=== PATIENT | female | born 1950 | race Caucasian/White ===

== ENCOUNTER 2016-07-07 12:55 | Inpatient (IN) | payer OTHER ==
--- NOTE | ~2016-07-07 | DS ---
Discharge Summary [facility] [address] [place]. [address] NAME: PIOTR LUCIANO : 54 STATUS : DIS IN PAT#: [id number] AGE: 66 ADM/REG DATE : 07/07/16 MR#: [id number] REPORT SERV DATE: 07/13/16 DICTATED BY: GENEVIEVE WHITE DATE: 07/12/16 REPORT STATUS : Draft TRANSCRIBED BY: MODL DATE: 07/12/16 ADMISSION DATE: 07/07/2016 DISCHARGE DATE: 07/12/2016 DISCHARGE DIAGNOSES: 1. Acute on chronic hypoxemic and hypercapnic respiratory failure. 2. Severe chronic obstructive pulmonary disease. 3. Right lower lobe pneumonia. 4. Previous stroke. 5. Chronic pain syndrome. 6. Anxiety and depression with bipolar disorder. 7. History of stress cardiomyopathy, 2016. 8. Low TSH with normal T4. OPERATION/PROCEDURES: Mechanical ventilation. PRESENT ILLNESS: This is a 66-year-old white female who was admitted to the Critical Care Medicine Team, taken in transfer from [facility] Emergency Room with respiratory failure. Intubated on mechanical ventilation as described on admission history and physical examination, dictated by Dr. Kye Carrion. ADDITIONAL HISTORY: Per Dr. Carrion. PHYSICAL EXAMINATION: Per Dr. Carrion. ADMISSION LABORATORY: Per Dr. Carrion. HOSPITAL COURSE: She was managed in the critical care unit by the Critical Care Medicine. Details per interim summary yet to be dictated. Of note, she was given bronchodilators, Levaquin, and steroids. She was able to be extubated on 07/09/2016. She was transferred to the floor on 07/11/2016 where she was seen by Dr. Alfaro. She was seen by id on 07/12/2016. Her son was present. The patient and her son thought that she was back to her baseline status. She thought that her cough and dyspnea were baseline. Her O2 sats on 2 L 96 to 97, resting and walking. She was eating without nausea, vomiting, or diarrhea. A procalcitonin was less than 0.05. BMP; sodium 137, potassium 3.5, chloride 96, CO2 of 39, BUN 8, creatinine 0.25, glucose 92, calcium 8.5. CBC; white count 11.9, hemoglobin 11.4, platelets 301,000. Culture data from admission. Trachea, normal natalya. Blood cultures, no growth. Discharge Summary [facility] [address] [place]. [address] NAME: PIOTR LUCIANO : 54 STATUS : DIS IN PAT#: [id number] AGE: 66 ADM/REG DATE : 07/07/16 MR#: [id number] REPORT SERV DATE: 07/13/16 DICTATED BY: GENEVIEVE WHITE DATE: 07/12/16 REPORT STATUS : Draft TRANSCRIBED BY: DANITA DATE: 07/12/16 A chest x-ray that had been done on 07/07/2016 showed right basilar patchy consolidation with small pleural effusion and lateral right mid lung consolidation concerning for multifocal pneumonia. Her ET tube was appropriately placed. A followup x-ray had been done on 07/10/2016 post extubation. There was infiltrate at the right base. At this point in her hospitalization, it was felt she had achieved a level of improvement and stability where she could be safely discharged home. She had been living by herself. Her son indicated she would be living with him. She was seen by Physical Therapy, who thought she could be discharged home with home health care. Accordingly, she is being discharged with [facility] for home evaluation, PT evaluation, and treatment and medication reconciliation. She will continue her home diet. She will continue her home O2 at 2 L/minute. She is to have outpatient followup with Alvaro Sams in one week and Dr. Kirby in two weeks. DISCHARGE MEDICATIONS: Pending outpatient followup. Abilify 15 mg daily, aspirin 81 mg daily, Lipitor 40 mg daily, Coreg 6.25 mg twice daily, Lexapro 10 mg daily, Levaquin 750 mg for four further days, prednisone 40 mg daily for four further days, Claritin 10 mg daily, multivitamin daily, Risperdal 1 mg at bedtime, Spiriva one cap inhaled daily, albuterol nebs every six hours as needed, Symbicort two puffs twice daily, Ultram 100 mg every six hours as needed. Discharge time greater than 30 minutes. DD/DANITA Genevieve White M.D. / [id number] CC: Nate Bailey PAUL E Pamela Sud, M.D.
--- NOTE | ~2016-07-07 | HP ---
History And Physical [facility] [address] [place]. [address] NAME: PIOTR RIGGS : 54 STATUS : ADM IN [facility]#: [id number] AGE: 66 ADM/REG DATE : 07/07/16 MR#: [id number] REPORT SERV DATE: 07/07/16 DICTATED BY: RENITA CARRION DATE: 07/07/16 REPORT STATUS : Draft TRANSCRIBED BY: MODL DATE: 07/07/16 DATE OF ADMISSION: 07/07/2016 REASON FOR ADMISSION: Acute hypercapnic respiratory failure. HISTORY OF PRESENT ILLNESS: Ms. Riggs is a 66-year-old woman with very severe COPD, bullous emphysema, and a 3-pack a day smoking habit, had recently been hospitalized because of complications of her respiratory status. She presented to an outside hospital, where she was found to be very hypercapnic and hypoxemic. She was intubated, placed on mechanical ventilation, transferred for further management. PAST MEDICAL HISTORY: Significant for severe COPD with bullous emphysema. She has anxiety and psychiatric disease and had been admitted with hyponatremia, some of which was associated with her psychotropic medications on last summer. She has had worsening cough, worsening dyspnea, but no recent chest pain. She has an FEV1 previously documented at about 40% of predicted, coronary artery disease, hypertension, chronic migraines, depression, anxiety, and tobacco abuse. SOCIAL HISTORY: She previously had a 3-pack a day habit. Continues to smoke. No alcohol abuse or illicit drug use. FAMILY HISTORY: Noncontributory to this acute presentation, though it is positive for smoking-related lung disease. REVIEW OF SYSTEMS: Review of 10 systems could not be obtained from the patient because she is intubated, though was confirmed with the family who is at the bedside. PHYSICAL EXAMINATION: GENERAL: On exam, she appears chronically ill. HEENT: Normocephalic, atraumatic. NECK: Supple. No lymphadenopathy. No JVD. CHEST: Symmetric with good expansion bilaterally. She has a prolonged expiratory phase. Diminished breath sounds throughout. She is on the ventilator. CARDIOVASCULAR: She has S1 and S2, which are regular rate and rhythm. ABDOMEN: Benign. She has no edema. No clubbing. No cyanosis. ASSESSMENT AND PLAN: [id number]-pt-[id number] hypercapnic hypoxemic respiratory failure: She has significant hypercapnia on presentation to the outside hospital, slightly improved on the ventilator. Her chest radiograph shows some increased congestion at the bases, though it is unclear to me how much of that because of the hyperlucency of the upper lung hernandez given her known severe emphysema. We will treat her with aggressive antibiotic therapy just the same both for acute exacerbation of chronic obstructive pulmonary disease as well as for possible early pneumonia. She will have a followup procalcitonin level in the morning for monitoring. In the meantime, she has been started on systemic steroids, aggressive bronchodilator therapy, DVT, and GI prophylaxis, and will remain on the ventilator. Family History And Physical [address] [place]. [address] NAME: PIOTR RIGGS : 54 STATUS : ADM IN [facility]#: [id number] AGE: 66 ADM/REG DATE : 07/07/16 MR#: [id number] REPORT SERV DATE: 07/07/16 DICTATED BY: RENITA CARRION DATE: 07/07/16 REPORT STATUS : Draft TRANSCRIBED BY: DANITA DATE: 07/07/16 was updated. HOLLIE/DANITA Renita Carrion M.D. / [id number] CC: Ashlie Cazares M.D.
[~2016-07-07 12:55] MED LIST: ABILIFY15 PO; ABILIFY2 PO; ADVIL PO; ANTIBIOTIC; ASAB PO; ATROVENTUD INH; BUSPAR15 M1 PO; CLARIT10 PO; COGEN1 PO; COMBIVENT INH; COMBIVENT RESPIM4 GM INH; COREG6 PO; DUONEB INH; FLORASTOR250 MG PO; HALF81 PO; L25 PO; LEXAPRO20 PO; LIPITOR40 PO; MAX25 PO; MEDROLPAK4 PO; MULTIVIT/MIN PO; NICODERM C14 MG/24 H TOP; OMNICEF300 PO; P10 PO; P20 PO; P5 PO; PRIN10 PO; PROMETHAZINE DM PO; PROVENTSOL INH; PROVHFA INH; RISP1 PO; SPIRIVA INH; SYMBICORT 160/41 INH INH; THERGRANM PO; ULTRAM50 PO; VENTOLIN HFA INH; VIB100 PO
[2016-07-07 13:44] LABS: ALLENS TEST Pos; BE (BASE EXCESS) 12.1 MEQ/L (0 +/- 2.5); CARBOXYHEMOGLOBIN 0.1 % (0-3); HCO3 (ACTUAL BICARBONATE) 39.1 MEQ/L (23-27); INSTRUMENT SERIAL # 35151; METHEMOGLOBIN 0.7 % (0-3); MODE CMV; O2 CONTENT 16.4 VOL% (18-24); OPERATOR ID 32214; PCO2 (CO2 TENSION) 63 MMHG (35-45); PO2 (O2 TENSION) 90 MMHG (79-93); SAMPLE Arterial; TIDAL VOLUME 400 ML; pH 7.41 (7.37-7.43)
[2016-07-07 14:39] LABS: BASOPHILS 0.1 %; BASOPHILS ABSOLUTE 0.01 10/3/uL (0.0-0.16); EOSINOPHILS 0 %; HEMATOCRIT 35.7 % (36.0-48.0); HEMOGLOBIN 11.1 g/dL (12.0-16.0); IMMATURE GRANULOCYTES 0.3 %; IMMATURE GRANULOCYTES ABSOLUTE 0.02 10/3/uL (0.0-0.11); LYMPHOCYTES 7.3 %; LYMPHOCYTES ABSOLUTE 0.53 10/3/uL (0.67-4.30); MEAN CORPUS HGB CONC 31.1 g/dL (32.0-36.0); MEAN CORPUSCULAR HEMOGLOB 30.3 pg (26.0-34.0); MEAN PLATELET VOLUME 9.9 fL (9.2-13.0); MONOCYTES 8.6 %; MONOCYTES ABSOLUTE 0.63 10/3/uL (0.21-1.20); NEUTROPHILS 83.7 %; NEUTROPHILS ABSOLUTE 6.11 10/3/uL (2.02-8.40); PLATELET COUNT 239 10/3/uL (150-400); RBC DISTRIBUTION WIDTH 12.7 % (12.0-16.0); RED CELL COUNT 3.66 10/6/uL (4.0-5.6); WHITE BLOOD CELLS 7.3 10/3/uL (4.5-10.5)
[2016-07-07 14:44] LABS: PARTIAL THROMBO TIME 30.5 SEC (22.5-37.2)
[2016-07-07 14:45] LABS: INTERNATIONAL NORMAL RATI 1.2 UNITS (-)
[2016-07-07 14:58] LABS: MANUAL DIFF NO %; MEAN CORPUSCULAR VOLUME 97.5 fL (80-100)
[2016-07-07 15:15] LABS: CALCIUM, SERUM 8.4 MG/DL (8.5-10.4); CHLORIDE, SERUM 92 MMOL/L (96-112); CO2 (CARBON DIOXIDE) 38 MMOL/L (24-34); CREATININE 0.36 MG/DL (0.55-1.02); FREE T4 1.43 NG/DL (0.76-1.46); GFR AFRICAN AMERICAN 132 ML/MIN (>=60); GFR NON AFRICAN AMERICAN 114 ML/MIN (>=60); POTASSIUM, SERUM 3.9 MMOL/L (3.5-5.3); SGOT(AST) 15 U/L (5-40); SGPT(ALT) 12 U/L (5-65); SODIUM, SERUM 134 MMOL/L (135-148); TOTAL BILIRUBIN 0.4 MG/DL (0-1.2); TOTAL PROTEIN 6.4 G/DL (6.0-8.5)
[2016-07-07 15:16] LABS: A/G RATIO 0.6 (0.7-1.9); ALBUMIN 2.3 G/DL (3.5-5.0); ALKALINE PHOSPHATASE 66 U/L (45-117); BUN (BLOOD UREA NITROGEN) 16 MG/DL (6-23); GLOBULIN 4.1 G/DL (2.5-4.1); GLUCOSE, SERUM 127 MG/DL (60-99); TROPONIN I 0.05 NG/ML (<0.05); ULTRASENSITIVE TSH 0.074 MCIU/ML (0.358-3.740)
[2016-07-08 04:28] LABS: ALLENS TEST Pos; BE (BASE EXCESS) 12.4 MEQ/L (0 +/- 2.5); CARBOXYHEMOGLOBIN 0.3 % (0-3); HCO3 (ACTUAL BICARBONATE) 39.5 MEQ/L (23-27); HEMOBLOGIN CONTENT 11.7 G/DL (12-16); INSTRUMENT SERIAL # 35151; METHEMOGLOBIN 0.7 % (0-3); MODE CMV; O2 CONTENT 15.5 VOL% (18-24); OPERATOR ID 23712; PCO2 (CO2 TENSION) 65 MMHG (35-45); PO2 (O2 TENSION) 71 MMHG (79-93); SAMPLE Arterial; TIDAL VOLUME 400 ML; pH 7.41 (7.37-7.43)
[2016-07-08 04:29] LABS: ALBUMIN 2.2 G/DL (3.5-5.0); CALCIUM, SERUM 8.8 MG/DL (8.5-10.4); CHLORIDE, SERUM 92 MMOL/L (96-112); CO2 (CARBON DIOXIDE) 39 MMOL/L (24-34); GFR AFRICAN AMERICAN 128 ML/MIN (>=60); GFR NON AFRICAN AMERICAN 110 ML/MIN (>=60); GLUCOSE, SERUM 130 MG/DL (60-99); POTASSIUM, SERUM 4.2 MMOL/L (3.5-5.3); SODIUM, SERUM 134 MMOL/L (135-148)
[2016-07-08 04:30] LABS: BASOPHILS 0.1 %; BASOPHILS ABSOLUTE 0.01 10/3/uL (0.0-0.16); EOSINOPHILS 0 %; HEMATOCRIT 35.4 % (36.0-48.0); HEMOGLOBIN 11.2 g/dL (12.0-16.0); IMMATURE GRANULOCYTES 0.3 %; IMMATURE GRANULOCYTES ABSOLUTE 0.03 10/3/uL (0.0-0.11); LYMPHOCYTES 7.5 %; LYMPHOCYTES ABSOLUTE 0.79 10/3/uL (0.67-4.30); MEAN CORPUS HGB CONC 31.6 g/dL (32.0-36.0); MEAN CORPUSCULAR HEMOGLOB 30.9 pg (26.0-34.0); MEAN CORPUSCULAR VOLUME 97.5 fL (80-100); MEAN PLATELET VOLUME 10.1 fL (9.2-13.0); MONOCYTES 7.5 %; MONOCYTES ABSOLUTE 0.79 10/3/uL (0.21-1.20); NEUTROPHILS 84.6 %; NEUTROPHILS ABSOLUTE 8.92 10/3/uL (2.02-8.40); PLATELET COUNT 273 10/3/uL (150-400); RBC DISTRIBUTION WIDTH 12.6 % (12.0-16.0); RED CELL COUNT 3.63 10/6/uL (4.0-5.6)
[2016-07-08 04:33] LABS: MANUAL DIFF NO %; WHITE BLOOD CELLS 10.5 10/3/uL (4.5-10.5)
[2016-07-08 04:37] LABS: BUN (BLOOD UREA NITROGEN) 11 MG/DL (6-23); PHOSPHORUS, SERUM 1.6 MG/DL (2.5-4.5)
[2016-07-08 06:48] LABS: PROCALCITONIN 0.12 ng/mL (<0.5)
[2016-07-08] MEDS ORDERED: LIPITOR40 (14:04)
[2016-07-09 00:21] LABS: ASCORBIC ACID (UR NOT ORDER) 40 (NEG); BILIRUBIN, URINE NEGATIVE (NEG); KETONE, URINE 20 MG/DL (NEG); LEUKOCYTE ESTERASE(NOT OR NEG (NEG); WBC (NOT ORDERED) (RFLEX) 5 (0-5)
[2016-07-09 03:35] LABS: BASOPHILS 0.1 %; BASOPHILS ABSOLUTE 0.01 10/3/uL (0.0-0.16); EOSINOPHILS 0 %; HEMATOCRIT 33.8 % (36.0-48.0); HEMOGLOBIN 10.9 g/dL (12.0-16.0); IMMATURE GRANULOCYTES 0.6 %; IMMATURE GRANULOCYTES ABSOLUTE 0.06 10/3/uL (0.0-0.11); LYMPHOCYTES 9.6 %; LYMPHOCYTES ABSOLUTE 1.03 10/3/uL (0.67-4.30); MANUAL DIFF NO %; MEAN CORPUS HGB CONC 32.2 g/dL (32.0-36.0); MEAN CORPUSCULAR HEMOGLOB 30.9 pg (26.0-34.0); MEAN CORPUSCULAR VOLUME 95.8 fL (80-100); MEAN PLATELET VOLUME 9.6 fL (9.2-13.0); MONOCYTES 12.8 %; MONOCYTES ABSOLUTE 1.38 10/3/uL (0.21-1.20); NEUTROPHILS 76.9 %; NEUTROPHILS ABSOLUTE 8.26 10/3/uL (2.02-8.40); PLATELET COUNT 276 10/3/uL (150-400); RBC DISTRIBUTION WIDTH 12.9 % (12.0-16.0); RED CELL COUNT 3.53 10/6/uL (4.0-5.6); WHITE BLOOD CELLS 10.7 10/3/uL (4.5-10.5)
[2016-07-09 03:48] LABS: BUN (BLOOD UREA NITROGEN) 11 MG/DL (6-23); CALCIUM, SERUM 8.9 MG/DL (8.5-10.4); CHLORIDE, SERUM 93 MMOL/L (96-112); CO2 (CARBON DIOXIDE) 39 MMOL/L (24-34); CREATININE 0.36 MG/DL (0.55-1.02); GFR AFRICAN AMERICAN 132 ML/MIN (>=60); GFR NON AFRICAN AMERICAN 114 ML/MIN (>=60); GLUCOSE, SERUM 110 MG/DL (60-99); POTASSIUM, SERUM 3.7 MMOL/L (3.5-5.3); SODIUM, SERUM 138 MMOL/L (135-148)
[2016-07-09 04:20] LABS: ALLENS TEST Pos; BE (BASE EXCESS) 12.5 MEQ/L (0 +/- 2.5); HCO3 (ACTUAL BICARBONATE) 38.1 MEQ/L (23-27); HEMOBLOGIN CONTENT 12.6 G/DL (12-16); INSTRUMENT SERIAL # 35151; METHEMOGLOBIN 0.6 % (0-3); MODE CMV; O2 CONTENT 17.2 VOL% (18-24); OPERATOR ID 16503; PCO2 (CO2 TENSION) 53 MMHG (35-45); PO2 (O2 TENSION) 92 MMHG (79-93); SAMPLE Arterial; TIDAL VOLUME 400 ML; pH 7.47 (7.37-7.43)
[2016-07-10 04:51] LABS: BASOPHILS 0.1 %; BASOPHILS ABSOLUTE 0.01 10/3/uL (0.0-0.16); EOSINOPHILS 0.3 %; EOSINOPHILS ABSOLUTE 0.03 10/3/uL (0.0-0.53); HEMATOCRIT 35.5 % (36.0-48.0); HEMOGLOBIN 11.1 g/dL (12.0-16.0); IMMATURE GRANULOCYTES 0.6 %; IMMATURE GRANULOCYTES ABSOLUTE 0.07 10/3/uL (0.0-0.11); LYMPHOCYTES 24.8 %; LYMPHOCYTES ABSOLUTE 2.77 10/3/uL (0.67-4.30); MANUAL DIFF NO %; MEAN CORPUS HGB CONC 31.3 g/dL (32.0-36.0); MEAN CORPUSCULAR HEMOGLOB 30.2 pg (26.0-34.0); MEAN CORPUSCULAR VOLUME 96.7 fL (80-100); MEAN PLATELET VOLUME 9.4 fL (9.2-13.0); MONOCYTES 10.5 %; MONOCYTES ABSOLUTE 1.17 10/3/uL (0.21-1.20); NEUTROPHILS 63.7 %; NEUTROPHILS ABSOLUTE 7.14 10/3/uL (2.02-8.40); PLATELET COUNT 279 10/3/uL (150-400); RBC DISTRIBUTION WIDTH 12.9 % (12.0-16.0); RED CELL COUNT 3.67 10/6/uL (4.0-5.6); WHITE BLOOD CELLS 11.2 10/3/uL (4.5-10.5)
[2016-07-10 05:04] LABS: CALCIUM, SERUM 8.4 MG/DL (8.5-10.4); CHLORIDE, SERUM 95 MMOL/L (96-112); GFR AFRICAN AMERICAN 140 ML/MIN (>=60); GFR NON AFRICAN AMERICAN 121 ML/MIN (>=60); POTASSIUM, SERUM 3.3 MMOL/L (3.5-5.3); SODIUM, SERUM 140 MMOL/L (135-148)
[2016-07-10 05:06] LABS: BUN (BLOOD UREA NITROGEN) 7 MG/DL (6-23); CO2 (CARBON DIOXIDE) 43 MMOL/L (24-34); GLUCOSE, SERUM 74 MG/DL (60-99)
[2016-07-12 04:28] LABS: BASOPHILS 0.2 %; BASOPHILS ABSOLUTE 0.02 10/3/uL (0.0-0.16); EOSINOPHILS 1.8 %; EOSINOPHILS ABSOLUTE 0.22 10/3/uL (0.0-0.53); HEMATOCRIT 36.4 % (36.0-48.0); HEMOGLOBIN 11.4 g/dL (12.0-16.0); IMMATURE GRANULOCYTES 2.3 %; IMMATURE GRANULOCYTES ABSOLUTE 0.27 10/3/uL (0.0-0.11); LYMPHOCYTES 24.5 %; LYMPHOCYTES ABSOLUTE 2.92 10/3/uL (0.67-4.30); MEAN CORPUS HGB CONC 31.3 g/dL (32.0-36.0); MEAN CORPUSCULAR HEMOGLOB 30.1 pg (26.0-34.0); MEAN PLATELET VOLUME 9.1 fL (9.2-13.0); MONOCYTES 6.9 %; MONOCYTES ABSOLUTE 0.82 10/3/uL (0.21-1.20); NEUTROPHILS 64.3 %; NEUTROPHILS ABSOLUTE 7.65 10/3/uL (2.02-8.40); PLATELET COUNT 301 10/3/uL (150-400); RBC DISTRIBUTION WIDTH 13.1 % (12.0-16.0); RED CELL COUNT 3.79 10/6/uL (4.0-5.6); WHITE BLOOD CELLS 11.9 10/3/uL (4.5-10.5)
[2016-07-12 04:30] LABS: MANUAL DIFF NO %
[2016-07-12 04:40] LABS: BUN (BLOOD UREA NITROGEN) 8 MG/DL (6-23); CALCIUM, SERUM 8.5 MG/DL (8.5-10.4); CHLORIDE, SERUM 96 MMOL/L (96-112); CO2 (CARBON DIOXIDE) 39 MMOL/L (24-34); CREATININE 0.25 MG/DL (0.55-1.02); GFR AFRICAN AMERICAN 149 ML/MIN (>=60); GFR NON AFRICAN AMERICAN 128 ML/MIN (>=60); GLUCOSE, SERUM 92 MG/DL (60-99); POTASSIUM, SERUM 3.5 MMOL/L (3.5-5.3); SODIUM, SERUM 137 MMOL/L (135-148)
[2016-07-12 05:07] LABS: PROCALCITONIN <0.05 ng/mL (<0.5)
[2016-07-12] MEDS ORDERED: P20 PO (16:35)
[2016-07-12] MEDS ORDERED: LEVAQUIN750 MG PO (16:38)
== END 2016-07-12 18:01 | disposition home health service (06) | DRG 208 ==
LOC: CCU 12:55 → 6NO 07-10 15:23
PROVIDERS: Internal Medicine; Internal Medicine Critical Care Medicine; Internal Medicine Pulmonary Disease
PROC: 5A1945Z Respiratory Ventilation, 24-96 Consecutive Hours (ICD-10-PCS; principal; 2016-07-07)
DX: J96.22 Acute and chronic respiratory failure with hypercapnia (principal); J18.9 Pneumonia, unspecified organism; J44.0 Chronic obstructive pulmonary disease with (acute) lower respiratory infection; Z99.81 Dependence on supplemental oxygen; E87.1 Hypo-osmolality and hyponatremia; I10 Essential (primary) hypertension; J96.21 Acute and chronic respiratory failure with hypoxia; F41.9 Anxiety disorder, unspecified; F31.9 Bipolar disorder, unspecified; G89.4 Chronic pain syndrome; F17.210 Nicotine dependence, cigarettes, uncomplicated; I25.10 Atherosclerotic heart disease of native coronary artery without angina pectoris; G43.909 Migraine, unspecified, not intractable, without status migrainosus; Z86.73 Personal history of transient ischemic attack (TIA), and cerebral infarction without residual deficits
CPT/HCPCS: 31720; 36600; 71010; 74000; 80048; 80053; 80069; 81001; 82607; 82746; 82805; 83735; 84132; 84145; 84439; 84443; 84484; 85025; 85610; 85730; 87040; 87070; 87205; 87641; 94002; 94003; 94640; 94660; 94770; 97161-GP; A9270-GY; C9113; G8978-CK-GP; G8979-CJ-GP; J1956; J2920; J3010

== ENCOUNTER 2016-08-27 22:00 | Inpatient (IN) | payer OTHER ==
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
--- NOTE | ~2016-08-27 | HP ---
History And Physical [facility] [address] [facility] [address] [place]. [address] NAME: PIOTR RIGGS : 54 STATUS : ADM IN PAT#: [id number] AGE: 66 ADM/REG DATE : 08/28/16 MR#: [id number] REPORT SERV DATE: 08/28/16 DICTATED BY: AGUS RIVAS DATE: 08/28/16 REPORT STATUS : Draft TRANSCRIBED BY: MODL DATE: 08/28/16 DATE OF ADMISSION: 08/28/2016 CHIEF COMPLAINT: Shortness of breath. HISTORY OF PRESENT ILLNESS: This is a 66-year-old female with a history of end- stage COPD on continuous oxygen at home, history of CVA in the past, bipolar disorder, who presents to the emergency room at [facility], with the above-mentioned complaint. History is obtained from the patient and his son who is at bedside, along with data available on the [employer] system. According to Mrs. Riggs and her son, she had been in her usual state of health, sleeping a lot recently according to the family, but stable on her current medications of inhalers and continuous oxygen. Yesterday, in the afternoon, she suddenly became increasingly short of breath and soon had very significant respiratory distress. He says she had tried all her inhalers including her rescue inhalers and nothing helped, so he decided to bring her to the emergency room to be evaluated. In the emergency room, initial workup revealed an acute exacerbation of her COPD and Hospitalist Service is asked to admit her for further evaluation and treatment. At the time of my evaluation, she denied any chest pain or palpitations. She had no orthopnea. She did have a cough, which was essentially nonproductive, has had hemoptysis a long time ago, more than 6 months ago. No such episodes recently. She denied any night sweats, but she did have some weight loss according to her, about 10 pounds in the last couple of months. She denied any recent falls or loss of consciousness. No history of recent travel or exposures. Denied any fevers, chills, nausea, vomiting, diarrhea, hematemesis, hematochezia, or hematuria. PAST MEDICAL HISTORY: Significant for history of COPD with continuous oxygen supplementation at home, history of essential hypertension, CVA in the past, bipolar disorder, chronic pain on pain management, hypothyroidism. She has had a hysterectomy. SOCIAL HISTORY: She has about a [id number] history of smoking and says she quit about 3 months ago. She denies alcohol use or recreational drug use. FAMILY HISTORY: Noncontributory. MEDICATIONS: Her medications at home were reviewed by me in the chart today and reordered by me. REVIEW OF SYSTEMS: As in history of present illness. All other systems were reviewed in detail and are quite unremarkable. PHYSICAL EXAMINATION: History And Physical [address] [address] NAME: PIOTR RIGGS : 54 STATUS : ADM IN PAT#: [id number] AGE: 66 ADM/REG DATE : 08/28/16 MR#: [id number] REPORT SERV DATE: 08/28/16 DICTATED BY: AGUS RIVAS DATE: 08/28/16 REPORT STATUS : Draft TRANSCRIBED BY: DANITA DATE: 08/28/16 GENERAL: This is a pleasant 66-year old, not in any acute distress. HEENT: Her head is atraumatic, normocephalic. She is alert, awake, oriented to time, place, and person. Pupils are equal, reacting to light and accommodating. External ocular muscles are intact. Membranes are moist and pink. Sclerae are nonicteric. NECK: Supple with no jugular venous distention, lymphadenopathy, or thyromegaly. LUNGS: Auscultation of her lungs revealed fair air entry bilaterally, but there were diffuse expiratory wheezes bilaterally. There were no rales. HEART: Auscultation of her heart revealed normal rate and rhythm with no murmurs, rubs, or gallops appreciated. ABDOMEN: Soft and nontender. Bowel sounds are present. EXTREMITIES: Showed bilateral clubbing with no cyanosis or edema. NEUROLOGIC: Grossly intact. No focal sensory or motor deficits. Higher functions appeared intact. Gait was not examined. VITAL SIGNS: Her vital signs today showed a temperature of 98.2, pulse 100, respirations 20 a minute, blood pressure was 146/78, oxygen saturations were 95%, breathing 2 L of oxygen via nasal cannula. LABORATORY DATA: Reviewed on the [employer] system showed a pH of 7.35, pCO2 was 62, pO2 of 75, and bicarb was 23.2. [place] [address], hemoglobin was 12.7, hematocrit 41.5, and platelet count was 207,000. CMP showed a sodium of 141, potassium 4.4, chloride 101, CO2 of 36, BUN was 14 with a creatinine of 0.51. Blood glucose was 86. Troponin was 0.03 today. Urinalysis was not done today. IMAGING: Films of the chest x-ray and CT scan of the chest were reviewed by me on the PACS today and interpreted by me. Official radiology report was also reviewed. There is bilateral apical bullous emphysema. The right lower lobe has a spiculated noncalcified mass versus atelectasis. There are no pleural effusions seen. IMPRESSION: 1. Shortness of breath. 2. Chronic obstructive pulmonary disease with acute exacerbation. 3. Right lower lobe lesion concerning for malignancy versus atelectasis. 4. Essential hypertension. 5. Bipolar disorder. 6. Chronic pain on pain management. 7. Hypothyroidism. PLAN: We will admit Mrs. Riggs to the Hospitalist Service with defensive monitoring. We will maximize her bronchodilator treatments, continue supplemental oxygen therapy, start her on IV steroids and inhaled corticosteroids. We will go ahead and consult Pulmonary Service to see her in the morning to evaluate her right lower lobe lesion. She had been seen earlier for a pulmonary lesion for which she had a biopsy done. She is followed by Dr. Flor Kirby. Differential would certainly include atelectasis and infectious etiologies. We will go ahead and obtain cultures, start her on empiric IV antibiotics, follow Gram stain and cultures, and proceed accordingly. We will also get thyroid function studies and continue replacement therapy. Continue all other medications and treatments at this time. We will also place her on unfractionated heparin for DVT prophylaxis while here. I have History And Physical [address] [address] NAME: PIOTR RIGGS : 54 STATUS : ADM IN PAT#: [id number] AGE: 66 ADM/REG DATE : 08/28/16 MR#: [id number] REPORT SERV DATE: 08/28/16 DICTATED BY: AGUS RIVAS DATE: 08/28/16 REPORT STATUS : Draft TRANSCRIBED BY: DANITA DATE: 08/28/16 discussed the above plans with the patient. Her questions were answered and she is agreeable to the above recommendations. Hospitalist Service will be following her during her stay here. MR/DANITA Agus Rivas M.D. / [id number] CC: Ben Zambrano MD
--- NOTE | ~2016-08-27 | DS ---
Discharge Summary [facility] [address] [place]. [address] NAME: PIOTR LUCIANO : 54 STATUS : DIS IN PAT#: [id number] AGE: 66 ADM/REG DATE : 08/28/16 MR#: [id number] REPORT SERV DATE: 08/30/16 DICTATED BY: KATHYA ORTIZ DATE: 08/30/16 REPORT STATUS : Draft TRANSCRIBED BY: MODL DATE: 08/30/16 ADMISSION DATE: 08/28/2016 DISCHARGE DATE: 08/30/2016 DISCHARGE DIAGNOSES: 1. Chronic obstructive pulmonary disease with acute exacerbation. 2. Shortness of breath, improved. 3. Hypertension. 4. Bipolar. 5. Chronic pain management. CONSULTATION: Pulmonary, Dr. Kirby, 08/28/2016. IMAGIN. CT of brain, 08/27/2016, impression: Small lacunar infarct, right basal ganglia caudate nucleus. 2. Chest x-ray, 08/27/2016, impression: Stable nodular opacity at the left lateral right lung base. This is better evaluated on sequentially performed CTA of the chest. Please see that separate report. Stable COPD changes in the lungs with a right apical fibrosis. 3. CTA of the chest, 08/27/2016, impression: Stable pattern of hyperinflated lungs with severe panacinar emphysematous changes, upper lobe prominent. New focal bandlike atelectasis. Peripheral right lung base, new from 06/28/2016. No other superimposed active pulmonary disease. 4. Chest x-ray, 08/28/2016, impression: Severe emphysema. LABORATORY DATA: On 08/28/2016, WBCs of 9.10, hemoglobin 12.7, hematocrit 41.2, platelet count is 204, procalcitonin is less than 0.05. Blood cultures negative x2 days growth. COURSE AT HOSPITAL STAY: Please refer to history and physical dictated by Dr. Liang on 08/28/2016 for complete admission details as well as consultation noted by Dr. Kirby on 08/28/2016. This patient is a 66-year-old female, who presented to [facility] emergency room with complaints of increased shortness of breath. She does present with a history of end-stage COPD, on continuous home O2. The patient was evaluated by [facility]'s emergency room for the above complaints. The patient was admitted to the hospital. Pulmonology was consulted to evaluate. The patient is now at baseline O2 of 2 L. She denies shortness of breath. Per Pulmonology, the patient will continue albuterol nebulizer at home as well as antibiotic. She will also continue prednisone 20 mg for four additional days as well as take probiotic while continuing the antibiotic at home. The patient was able to return to baseline within 12-24 hours. DISCHARGE MEDICATIONS: 1. Abilify 15 mg one p.o. daily. 2. Aspirin 81 mg one p.o. daily. Discharge Summary [address] [address] NAME: PIOTR LUCIANO : 54 STATUS : DIS IN PAT#: [id number] AGE: 66 ADM/REG DATE : 08/28/16 MR#: [id number] REPORT SERV DATE: 08/30/16 DICTATED BY: KATHYA ORTIZ DATE: 08/30/16 REPORT STATUS : Draft TRANSCRIBED BY: DANITA DATE: 08/30/16 3. Lipitor 40 mg one p.o. at bedtime. 4. Coreg 6.25 mg p.o. twice daily. 5. Lexapro 10 mg one p.o. daily. 6. Ceftin 500 mg one p.o. b.i.d. x5 days. 7. Probiotic one p.o. daily while taking antibiotic. 8. Prednisone 20 mg, 2 tablets twice daily x2 days. 9. Claritin 10 mg one p.o. daily. 10.Multivitamin daily. 11.Risperdal 1 mg one p.o. at bedtime. 12.Spiriva inhaler one capsule inhaled daily. 13.Albuterol inhaler/nebulizer per Pulmonary. 14.Symbicort two puffs inhaled twice daily. 15.Tramadol 100 mg p.o. every six hours p.r.n. for pain. The patient is being discharged home in hemodynamically stable condition. The patient will follow up with Dr. Kirby, outpatient as well as primary care physician. This discharge took less than 30 minutes. DICTATED BY: Kathya Ortiz NP Arlene/DANITA Kathya Ortiz NP / [id number] CC: Nate Phillips PAUL E
[2016-08-27 21:18] LABS: BASOPHILS 0.5 %; BASOPHILS ABSOLUTE 0.06 10/3/uL (0.0-0.16); EOSINOPHILS 1.7 %; EOSINOPHILS ABSOLUTE 0.19 10/3/uL (0.0-0.53); HEMATOCRIT 41.5 % (36.0-48.0); HEMOGLOBIN 12.7 g/dL (12.0-16.0); IMMATURE GRANULOCYTES 0.2 %; IMMATURE GRANULOCYTES ABSOLUTE 0.02 10/3/uL (0.0-0.11); LYMPHOCYTES 46.1 %; MEAN CORPUS HGB CONC 30.6 g/dL (32.0-36.0); MEAN CORPUSCULAR HEMOGLOB 29.6 pg (26.0-34.0); MEAN CORPUSCULAR VOLUME 96.7 fL (80-100); MEAN PLATELET VOLUME 9.8 fL (9.2-13.0); MONOCYTES ABSOLUTE 0.81 10/3/uL (0.21-1.20); NEUTROPHILS 44.5 %; NEUTROPHILS ABSOLUTE 5.11 10/3/uL (2.02-8.40); PLATELET COUNT 207 10/3/uL (150-400); RBC DISTRIBUTION WIDTH 13.9 % (12.0-16.0); RED CELL COUNT 4.29 10/6/uL (4.0-5.6); WHITE BLOOD CELLS 11.5 10/3/uL (4.5-10.5)
[2016-08-27 21:19] LABS: MANUAL DIFF NO %
[2016-08-27 21:31] LABS: CALCIUM, SERUM 8.8 MG/DL (8.5-10.4); CHLORIDE, SERUM 101 MMOL/L (96-112); CO2 (CARBON DIOXIDE) 36 MMOL/L (24-34); CREATININE 0.51 MG/DL (0.55-1.02); GFR AFRICAN AMERICAN 118 ML/MIN (>=60); GFR NON AFRICAN AMERICAN 102 ML/MIN (>=60); GLUCOSE, SERUM 86 MG/DL (60-99); SGOT(AST) 24 U/L (5-40); SGPT(ALT) 37 U/L (5-65); SODIUM, SERUM 141 MMOL/L (135-148); TOTAL BILIRUBIN 0.2 MG/DL (0-1.2); TOTAL PROTEIN 7.2 G/DL (6.0-8.5)
[2016-08-27 21:37] LABS: A/G RATIO 1.1 (0.7-1.9); ALBUMIN 3.7 G/DL (3.5-5.0); ALKALINE PHOSPHATASE 50 U/L (45-117); BUN (BLOOD UREA NITROGEN) 14 MG/DL (6-23); GLOBULIN 3.5 G/DL (2.5-4.1); POTASSIUM, SERUM 4.4 MMOL/L (3.5-5.3)
[2016-08-27 21:41] LABS: BAND NEUTROPHILS 1 %; ER DIFF TAT 0 Hrs 27 Mins; LYMPHOCYTES 44 %; LYMPHOCYTES ABSOLUTE (CALC) 5.06 10/3/uL (0.67-4.30); MONOCYTES 6 %; MONOCYTES ABSOLUTE (CALC) 0.69 10/3/uL (0.21-1.20); NEUTROPHILS ABSOLUTE (CALC) 5.75 10/3/uL (2.02-8.40); PLATELET ESTIMATE ADQ (ADEQUATE); RBC MORPHOLOGY NORM (NORMAL); SEGMENTED NEUTROPHIL (0) 49 %; TOTAL NUCLEATED CELLS 100
[~2016-08-27 22:00] MED LIST changes: +LEVAQUIN750 MG PO; +LIPITOR40
[2016-08-27 23:57] LABS: ALLENS TEST Pos; BE (BASE EXCESS) 5.7 MEQ/L (0 +/- 2.5); CARBOXYHEMOGLOBIN 2.1 % (0-3); DEVICE NC; HCO3 (ACTUAL BICARBONATE) 33.2 MEQ/L (23-27); INSTRUMENT SERIAL # 8087; METHEMOGLOBIN 0.3 % (0-3); O2 CONTENT 16.9 VOL% (18-24); OPERATOR ID 33449; PCO2 (CO2 TENSION) 62 MMHG (35-45); PO2 (O2 TENSION) 75 MMHG (79-93); SAMPLE Arterial; pH 7.35 (7.37-7.43)
[2016-08-28 00:05] LABS: TROPONIN I 0.03 NG/ML (<0.05)
[2016-08-28] MEDS ORDERED: VENTOLIN HFA INH (02:49)
[2016-08-28] MEDS ORDERED: ALBUTEROL5 INH (02:51)
[2016-08-28] MEDS ORDERED: ASAB PO (02:51)
[2016-08-28] MEDS ORDERED: ABILIFY15 PO (02:51)
[2016-08-28] MEDS ORDERED: SYMBICORT 160/41 INH INH (02:52)
[2016-08-28] MEDS ORDERED: LIPITOR40 PO (02:52)
[2016-08-28] MEDS ORDERED: COREG6 PO (02:54)
[2016-08-28] MEDS ORDERED: LEXAPRO10 PO (02:55)
[2016-08-28] MEDS ORDERED: CLARIT10 PO (02:55)
[2016-08-28] MEDS ORDERED: THERGRANM PO (02:56)
[2016-08-28] MEDS ORDERED: P5 PO (02:57)
[2016-08-28] MEDS ORDERED: ULTRAM50 PO (02:57)
[2016-08-28] MEDS ORDERED: RISP1 PO (02:58)
[2016-08-28] MEDS ORDERED: SPIRIVA INH (03:01)
[2016-08-28] MEDS ORDERED: *UNABLE3 (03:02)
[2016-08-28 03:20] LABS: ALLENS TEST Pos; CARBOXYHEMOGLOBIN 1.9 % (0-3); DEVICE NC; HCO3 (ACTUAL BICARBONATE) 33.8 MEQ/L (23-27); HEMOBLOGIN CONTENT 13.6 G/DL (12-16); INSTRUMENT SERIAL # 8087; METHEMOGLOBIN 0.4 % (0-3); O2 CONTENT 18.2 VOL% (18-24); OPERATOR ID 33449; PCO2 (CO2 TENSION) 64 MMHG (35-45); PO2 (O2 TENSION) 92 MMHG (79-93); SAMPLE Arterial; pH 7.34 (7.37-7.43)
[2016-08-28 05:20] LABS: BASOPHILS 0.2 %; BASOPHILS ABSOLUTE 0.02 10/3/uL (0.0-0.16); EOSINOPHILS 0.1 %; EOSINOPHILS ABSOLUTE 0.01 10/3/uL (0.0-0.53); HEMATOCRIT 41.2 % (36.0-48.0); HEMOGLOBIN 12.7 g/dL (12.0-16.0); IMMATURE GRANULOCYTES 0.2 %; IMMATURE GRANULOCYTES ABSOLUTE 0.02 10/3/uL (0.0-0.11); LYMPHOCYTES 8.9 %; LYMPHOCYTES ABSOLUTE 0.97 10/3/uL (0.67-4.30); MEAN CORPUS HGB CONC 30.8 g/dL (32.0-36.0); MEAN CORPUSCULAR HEMOGLOB 29.5 pg (26.0-34.0); MEAN CORPUSCULAR VOLUME 95.8 fL (80-100); MEAN PLATELET VOLUME 9.6 fL (9.2-13.0); MONOCYTES 1.1 %; MONOCYTES ABSOLUTE 0.12 10/3/uL (0.21-1.20); NEUTROPHILS 89.5 %; NEUTROPHILS ABSOLUTE 9.73 10/3/uL (2.02-8.40); PLATELET COUNT 204 10/3/uL (150-400); RBC DISTRIBUTION WIDTH 13.8 % (12.0-16.0); WHITE BLOOD CELLS 10.9 10/3/uL (4.5-10.5)
[2016-08-28 05:25] LABS: MANUAL DIFF NO %
[2016-08-28 05:46] LABS: PHOSPHORUS, SERUM 2.3 MG/DL (2.5-4.5); ULTRASENSITIVE TSH 0.231 MCIU/ML (0.358-3.740)
[2016-08-30 05:13] LABS: CALCIUM, SERUM 8.1 MG/DL (8.5-10.4); CHLORIDE, SERUM 106 MMOL/L (96-112); CO2 (CARBON DIOXIDE) 34 MMOL/L (24-34); CREATININE 0.38 MG/DL (0.55-1.02); GFR AFRICAN AMERICAN 130 ML/MIN (>=60); GFR NON AFRICAN AMERICAN 112 ML/MIN (>=60); GLUCOSE, SERUM 90 MG/DL (60-99); PHOSPHORUS, SERUM 2.6 MG/DL (2.5-4.5); POTASSIUM, SERUM 3.6 MMOL/L (3.5-5.3); SODIUM, SERUM 143 MMOL/L (135-148)
[2016-08-30 05:14] LABS: ALBUMIN 2.6 G/DL (3.5-5.0); BUN (BLOOD UREA NITROGEN) 5 MG/DL (6-23)
[2016-08-30] MEDS ORDERED: CEFT5 PO (14:15)
[2016-08-30] MEDS ORDERED: FLORASTOR250 MG PO (14:16)
[2016-08-30] MEDS ORDERED: P20 PO (14:17)
== END 2016-08-30 15:28 | disposition home or self-care (01) | DRG 189 ==
LOC: ER 22:00 → 4EA 08-28 02:13
PROVIDERS: Emergency Medicine; Internal Medicine; Internal Medicine Critical Care Medicine; Internal Medicine Pulmonary Disease; Specialist
DX: J96.21 Acute and chronic respiratory failure with hypoxia (principal); J44.1 Chronic obstructive pulmonary disease with (acute) exacerbation; I10 Essential (primary) hypertension; J98.11 Atelectasis; F31.9 Bipolar disorder, unspecified; E03.9 Hypothyroidism, unspecified; Z87.891 Personal history of nicotine dependence; R91.1 Solitary pulmonary nodule
CPT/HCPCS: 36600; 70450; 71020; 71275; 80053; 80069; 82805; 83735; 84100; 84145; 84443; 84484; 85025; 87040; 87449; 93005; 94640; 96374; 99285; A9270-GY; J0456; J2405; J2550; J2930; J3475; Q9967

== ENCOUNTER 2016-12-07 09:02 | Inpatient (IN) | payer OTHER ==
[~2016-12-07] VITALS: Ht 157.5 cm; Wt 95.0 kg
--- NOTE | ~2016-12-07 | CN ---
Consultation Report [facility] [id number] [place]. [address] NAME: PIOTR RIGGS : 54 STATUS : ADM IN [facility]#: [id number] AGE: 66 ADM/REG DATE : 12/07/16 MR#: [id number] REPORT SERV DATE: 12/07/16 DICTATED BY: AFUA COLMENARES DATE: 12/07/16 REPORT STATUS : Draft TRANSCRIBED BY: MODL DATE: 12/07/16 PULMONARY CONSULTATION DATE OF CONSULTATION: 12/07/2016 REASON FOR CONSULTATION: Right lower lobe pneumonia. CHIEF COMPLAINT: Not feeling well for some time. HISTORY OF PRESENT ILLNESS: Mrs. Riggs is a 66-year-old female with a past medical history of COPD. She was last seen in August, for which she had a right lower lobe pneumonia. She states that overall she does not feel well. She is known to have severe COPD with emphysema. She just got admitted and has noticed change in her symptoms. She is on oxygen therapy. Otherwise, no further complaints. No significant sputum production or fevers. PAST MEDICAL HISTORY: Severe COPD with emphysema, multiple admissions for COPD, history of smoking, coronary artery disease, chronic pain, bipolar disorder, history of stroke, pulmonary nodules. MEDICATIONS: Outpatient medications include Spiriva and Symbicort. Please see list for other medications. ALLERGIES: THIAZIDE DIURETICS. FAMILY HISTORY: No significant pulmonary family history. SOCIAL HISTORY: The patient was a heavy smoker, but has now quit. REVIEW OF SYSTEMS: All pertinent review of systems is reviewed and is otherwise negative. Weight loss is noted. PHYSICAL EXAMINATION: VITAL SIGNS: Afebrile, heart rate in the 80s, respiratory rate 20, oxygen saturation 91% to 98% on 2 L, blood pressure currently in the 115 to 120 systolic. GENERAL: The patient is alert and oriented, in no acute distress. HEENT: No cervical lymphadenopathy. No JVD. Neck is supple. PULMONARY: Distant breath sounds bilaterally with coarse breath sounds. Some rhonchi are noted. No crackles. CARDIAC: Regular rate. No murmurs. ABDOMEN: Soft, nontender, nondistended. EXTREMITIES: No cyanosis. No lower extremity edema. Peripheral pulses noted. NEUROLOGIC: No focal neurological abnormalities. Consultation Report [facility] [id number] [facility] [place]. [address] NAME: PIOTR RIGGS : 54 STATUS : ADM IN PAT#: [id number] AGE: 66 ADM/REG DATE : 12/07/16 MR#: [id number] REPORT SERV DATE: 12/07/16 DICTATED BY: AFUA COLMENARES DATE: 12/07/16 REPORT STATUS : Draft TRANSCRIBED BY: DANITA DATE: 12/07/16 IMAGING DATA: Chest x-ray shows a right lower lobe infiltrate. LABORATORY EXAMINATION: No leukocytosis. Evidence of chronic hypercapnia. ASSESSMENT AND PLAN: Mrs. Riggs is a 66-year-old female with a past medical history noted above. 1. Acute pneumonia: The patient is being treated with Levaquin for community-acquired pneumonia. I agree with this current therapy. She is nontoxic appearing at this moment in time, but does state that she feels sick. We will continue to follow her infiltrate and hypoxia. She seems to be at her baseline level of oxygen requirements. We will check immunoglobulins. 2. Severe chronic obstructive pulmonary disease: Continue current therapy. However, would recommend that we start Spiriva in addition to the Dulera along with as-needed albuterol. 3. Hypoxia: Continue oxygen therapy. 4. Chronic hypercapnia: We will discuss further whether this patient is on Trilogy, this was brought up back in August. Thank you very much for this consultation and allowing us to participate in your patient's care, please call us with any further questions or concerns. HFQ/MODL Afua Colmenares MD / [id number] CC: MD Flaquita Alvarez Paul E
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
--- NOTE | ~2016-12-07 | DS ---
Discharge Summary [facility] [address] [place]. [address] NAME: PIOTR RIGGS : 54 STATUS : ADM IN [facility]#: [id number] AGE: 66 ADM/REG DATE : 12/07/16 MR#: [id number] REPORT SERV DATE: 12/10/16 DICTATED BY: MINESH MCPHERSON DATE: 12/10/16 REPORT STATUS : Draft TRANSCRIBED BY: MODL DATE: 12/10/16 ADMISSION DATE: 12/07/2016 DISCHARGE DATE: Ms. Riggs is a 66-year-old female with a history of hypertension, COPD, bipolar disorder and hyperlipidemia, who presented to the hospital with a complaint of shortness of breath. For further details, please refer to H and P dictated by Dr. Ward on 12/07/2016. HOSPITAL COURSE: Upon presentation to the hospital, the patient was admitted on the Hospitalist Service for further management with a diagnosis of COPD. The patient was started on empiric antibiotic therapy and also placed on IV steroids. Review of imaging and vitals revealed that the patient's presentation was not consistent with pneumonia, however, was consistent with COPD exacerbation. Given that antibiotic therapy was discontinued, the patient was continued on IV steroids. The patient has responded very well to the therapy with resolution of her presenting complaints and a return of her respiratory status to baseline. Given her hemodynamic stability and given resolution of presenting complaints, the patient will be discharged home to follow up with her primary care physician. Plan has been discussed with the patient, who voices understanding and is agreeable with this plan. DISCHARGE DIAGNOSES: 1. Chronic obstructive pulmonary disease. 2. Hypertension. 3. Bipolar disorder. 4. Hyperlipidemia. 5. Metabolic alkalosis. DISCHARGE MEDICATIONS: 1. Abilify 15 mg p.o. daily. 2. Aspirin 81 mg p.o. daily. 3. Atorvastatin 40 mg p.o. daily. 4. Coreg 6.25 mg p.o. twice a day. 5. Lexapro 20 mg p.o. every morning. 6. Prednisone 5 mg p.o. daily. 7. Risperdal 1 mg p.o. at bedtime. 8. Spiriva 18 mcg one capsule via inhalation daily. 9. Albuterol two puffs inhalation daily p.r.n. 10.Symbicort two puffs inhalation p.o. twice a day. 11.Albuterol nebulizer one inhalation three times daily. 12.Prednisone 40 mg p.o. daily for five days. CONSULTANTS: Dr. Colmenares of Pulmonology, please refer to consultation note for evaluation. IMAGING: Chest radiograph, impression: 1. Acute infiltrates in the right perihilar region and right lung base. 2. COPD. Discharge Summary [address] [address] NAME: PIOTR RIGGS : 54 STATUS : ADM IN [facility]#: [id number] AGE: 66 ADM/REG DATE : 12/07/16 MR#: [id number] REPORT SERV DATE: 12/10/16 DICTATED BY: MINESH MCPHERSON DATE: 12/10/16 REPORT STATUS : Draft TRANSCRIBED BY: DANITA DATE: 12/10/16 DISPOSITION: The patient will be discharged home. ACTIVITY: As tolerated. DIET: Regular. Greater than 30 minutes was spent discharging this patient. SERA/DANITA Minesh Mcpherson MD / [id number] CC: MD Flaquita Alvarez Paul E
[~2016-12-07 09:02] MED LIST changes: +*UNABLE3; +ALBUTEROL5 INH; +CEFT5 PO; +LEXAPRO10 PO
[2016-12-07 09:51] LABS: BASOPHILS 0.3 %; BASOPHILS ABSOLUTE 0.03 10/3/uL (0.0-0.16); HEMATOCRIT 39.7 % (36.0-48.0); HEMOGLOBIN 11.7 g/dL (12.0-16.0); IMMATURE GRANULOCYTES 0.3 %; IMMATURE GRANULOCYTES ABSOLUTE 0.03 10/3/uL (0.0-0.11); LYMPHOCYTES ABSOLUTE 1.57 10/3/uL (0.67-4.30); MEAN CORPUS HGB CONC 29.5 g/dL (32.0-36.0); MEAN CORPUSCULAR HEMOGLOB 30.5 pg (26.0-34.0); MEAN PLATELET VOLUME 9.8 fL (9.2-13.0); MONOCYTES ABSOLUTE 0.73 10/3/uL (0.21-1.20); NEUTROPHILS 76.4 %; NEUTROPHILS ABSOLUTE 8.01 10/3/uL (2.02-8.40); PLATELET COUNT 221 10/3/uL (150-400); RBC DISTRIBUTION WIDTH 12.8 % (12.0-16.0); RED CELL COUNT 3.83 10/6/uL (4.0-5.6); WHITE BLOOD CELLS 10.5 10/3/uL (4.5-10.5)
[2016-12-07 09:53] LABS: MANUAL DIFF NO %; MEAN CORPUSCULAR VOLUME 103.7 fL (80-100)
[2016-12-07 09:59] LABS: PROTIME (NOT ORD) 13.2 SEC (12.0-14.5)
[2016-12-07 10:05] LABS: BUN (BLOOD UREA NITROGEN) 9 MG/DL (6-23); CALCIUM, SERUM 9.1 MG/DL (8.5-10.4); CHEST PAIN PROFILE TAT 0 Hrs 20 Mins; CHLORIDE, SERUM 94 MMOL/L (96-112); CO2 (CARBON DIOXIDE) 44 MMOL/L (24-34); CREATININE 0.34 MG/DL (0.55-1.02); GFR AFRICAN AMERICAN 135 ML/MIN (>=60); GFR NON AFRICAN AMERICAN 116 ML/MIN (>=60); GLUCOSE, SERUM 120 MG/DL (60-99); POTASSIUM, SERUM 4.8 MMOL/L (3.5-5.3); SODIUM, SERUM 138 MMOL/L (135-148); TROPONIN I 0.04 NG/ML (<0.05)
[2016-12-07] MEDS ORDERED: ASAB PO (10:55)
[2016-12-07] MEDS ORDERED: COREG6 PO (11:13)
[2016-12-07] MEDS ORDERED: P5 PO (11:13)
[2016-12-07] MEDS ORDERED: ALBUTEROL0.083 % INH (11:14)
[2016-12-07] MEDS ORDERED: RISP1 PO (11:14)
[2016-12-07] MEDS ORDERED: LEXAPRO20 PO (11:14)
[2016-12-07] MEDS ORDERED: ABILIFY15 PO (11:14)
[2016-12-07] MEDS ORDERED: ZOFRAN4 PO (11:15)
[2016-12-07] MEDS ORDERED: LIPITOR40 PO (11:15)
[2016-12-07] MEDS ORDERED: SYMBICORT 160/41 INH INH (11:15)
[2016-12-07] MEDS ORDERED: ULTRAM50 PO (11:15)
[2016-12-07] MEDS ORDERED: ADVIL PO (11:16)
[2016-12-07] MEDS ORDERED: VENTOLIN HFA INH (11:17)
[2016-12-08 04:27] LABS: BASOPHILS 0.1 %; BASOPHILS ABSOLUTE 0.01 10/3/uL (0.0-0.16); EOSINOPHILS 0 %; HEMOGLOBIN 10.6 g/dL (12.0-16.0); IMMATURE GRANULOCYTES 0.2 %; IMMATURE GRANULOCYTES ABSOLUTE 0.02 10/3/uL (0.0-0.11); LYMPHOCYTES 27.9 %; LYMPHOCYTES ABSOLUTE 2.49 10/3/uL (0.67-4.30); MEAN CORPUS HGB CONC 30.7 g/dL (32.0-36.0); MEAN CORPUSCULAR HEMOGLOB 30.3 pg (26.0-34.0); MONOCYTES ABSOLUTE 0.89 10/3/uL (0.21-1.20); NEUTROPHILS 61.8 %; NEUTROPHILS ABSOLUTE 5.53 10/3/uL (2.02-8.40); PLATELET COUNT 202 10/3/uL (150-400); RBC DISTRIBUTION WIDTH 12.8 % (12.0-16.0); WHITE BLOOD CELLS 8.9 10/3/uL (4.5-10.5)
[2016-12-08 04:28] LABS: HEMATOCRIT 34.5 % (36.0-48.0); MANUAL DIFF NO %; MEAN CORPUSCULAR VOLUME 98.6 fL (80-100)
[2016-12-08 04:41] LABS: BUN (BLOOD UREA NITROGEN) 7 MG/DL (6-23); CALCIUM, SERUM 8.5 MG/DL (8.5-10.4); CHLORIDE, SERUM 95 MMOL/L (96-112); CO2 (CARBON DIOXIDE) 40 MMOL/L (24-34); CREATININE 0.34 MG/DL (0.55-1.02); GFR AFRICAN AMERICAN 135 ML/MIN (>=60); GFR NON AFRICAN AMERICAN 116 ML/MIN (>=60); GLUCOSE, SERUM 117 MG/DL (60-99); POTASSIUM, SERUM 3.9 MMOL/L (3.5-5.3); SODIUM, SERUM 138 MMOL/L (135-148)
[2016-12-09 06:09] LABS: A/G RATIO 0.9 (0.7-1.9); ALKALINE PHOSPHATASE 50 U/L (45-117); BUN (BLOOD UREA NITROGEN) 9 MG/DL (6-23); CALCIUM, SERUM 8.4 MG/DL (8.5-10.4); CHLORIDE, SERUM 97 MMOL/L (96-112); CO2 (CARBON DIOXIDE) 36 MMOL/L (24-34); CREATININE 0.51 MG/DL (0.55-1.02); GFR AFRICAN AMERICAN 118 ML/MIN (>=60); GFR NON AFRICAN AMERICAN 102 ML/MIN (>=60); GLOBULIN 3.2 G/DL (2.5-4.1); GLUCOSE, SERUM 160 MG/DL (60-99); SGOT(AST) 12 U/L (5-40); SGPT(ALT) 17 U/L (5-65); SODIUM, SERUM 136 MMOL/L (135-148); TOTAL BILIRUBIN 0.3 MG/DL (0-1.2); TOTAL PROTEIN 6.2 G/DL (6.0-8.5)
[2016-12-09 06:15] LABS: BASOPHILS 0.1 %; BASOPHILS ABSOLUTE 0.01 10/3/uL (0.0-0.16); EOSINOPHILS 0 %; HEMATOCRIT 37.1 % (36.0-48.0); HEMOGLOBIN 11.7 g/dL (12.0-16.0); IMMATURE GRANULOCYTES 0.1 %; IMMATURE GRANULOCYTES ABSOLUTE 0.01 10/3/uL (0.0-0.11); LYMPHOCYTES ABSOLUTE 0.94 10/3/uL (0.67-4.30); MEAN CORPUS HGB CONC 31.5 g/dL (32.0-36.0); MEAN CORPUSCULAR HEMOGLOB 30.1 pg (26.0-34.0); MEAN PLATELET VOLUME 10.1 fL (9.2-13.0); MONOCYTES 1.5 %; NEUTROPHILS 84.3 %; NEUTROPHILS ABSOLUTE 5.66 10/3/uL (2.02-8.40); PLATELET COUNT 202 10/3/uL (150-400); RBC DISTRIBUTION WIDTH 12.9 % (12.0-16.0); RED CELL COUNT 3.89 10/6/uL (4.0-5.6); WHITE BLOOD CELLS 6.7 10/3/uL (4.5-10.5)
[2016-12-09 06:16] LABS: MANUAL DIFF NO %; MEAN CORPUSCULAR VOLUME 95.4 fL (80-100)
[2016-12-10 06:55] LABS: BASOPHILS 0 %; EOSINOPHILS 0 %; HEMATOCRIT 36.3 % (36.0-48.0); HEMOGLOBIN 11.6 g/dL (12.0-16.0); IMMATURE GRANULOCYTES 0.2 %; IMMATURE GRANULOCYTES ABSOLUTE 0.02 10/3/uL (0.0-0.11); LYMPHOCYTES 22.6 %; LYMPHOCYTES ABSOLUTE 2.16 10/3/uL (0.67-4.30); MANUAL DIFF NO %; MEAN CORPUSCULAR HEMOGLOB 29.9 pg (26.0-34.0); MEAN CORPUSCULAR VOLUME 93.6 fL (80-100); MEAN PLATELET VOLUME 9.9 fL (9.2-13.0); MONOCYTES 7.9 %; MONOCYTES ABSOLUTE 0.76 10/3/uL (0.21-1.20); NEUTROPHILS 69.3 %; NEUTROPHILS ABSOLUTE 6.62 10/3/uL (2.02-8.40); PLATELET COUNT 216 10/3/uL (150-400); RBC DISTRIBUTION WIDTH 13.1 % (12.0-16.0); RED CELL COUNT 3.88 10/6/uL (4.0-5.6); WHITE BLOOD CELLS 9.6 10/3/uL (4.5-10.5)
[2016-12-10 07:10] LABS: ALBUMIN 2.9 G/DL (3.5-5.0); ALKALINE PHOSPHATASE 45 U/L (45-117); BUN (BLOOD UREA NITROGEN) 9 MG/DL (6-23); CALCIUM, SERUM 8.2 MG/DL (8.5-10.4); CHLORIDE, SERUM 101 MMOL/L (96-112); CO2 (CARBON DIOXIDE) 33 MMOL/L (24-34); CREATININE 0.38 MG/DL (0.55-1.02); GFR AFRICAN AMERICAN 130 ML/MIN (>=60); GFR NON AFRICAN AMERICAN 112 ML/MIN (>=60); SGOT(AST) 13 U/L (5-40); SGPT(ALT) 18 U/L (5-65); SODIUM, SERUM 139 MMOL/L (135-148); TOTAL BILIRUBIN 0.5 MG/DL (0-1.2); TOTAL PROTEIN 5.9 G/DL (6.0-8.5)
[2016-12-10 07:11] LABS: GLUCOSE, SERUM 115 MG/DL (60-99)
[2016-12-10 07:24] LABS: MACROCYTES 1+ (5-10/OIF) (0-5/OIF); PLATELET ESTIMATE ADQ (ADEQUATE)
[2016-12-10 07:25] LABS: POLYCHROMASIA 1+ (2-5/OIF) (0-1/OIF)
[2016-12-10] MEDS ORDERED: SPIRIVA INH (14:32)
== END 2016-12-10 15:41 | disposition home health service (06) | DRG 189 ==
LOC: ER 09:02 → 6NO 11:08
PROVIDERS: Emergency Medicine; Hospitalist; Internal Medicine
DX: J96.21 Acute and chronic respiratory failure with hypoxia (principal); E87.3 Alkalosis; E46 Unspecified protein-calorie malnutrition; Z99.81 Dependence on supplemental oxygen; J44.1 Chronic obstructive pulmonary disease with (acute) exacerbation; I10 Essential (primary) hypertension; G89.29 Other chronic pain; I25.10 Atherosclerotic heart disease of native coronary artery without angina pectoris; J96.22 Acute and chronic respiratory failure with hypercapnia; E03.9 Hypothyroidism, unspecified; F31.9 Bipolar disorder, unspecified; E78.5 Hyperlipidemia, unspecified; Z79.82 Long term (current) use of aspirin; Z87.891 Personal history of nicotine dependence; Z79.51 Long term (current) use of inhaled steroids; Z90.710 Acquired absence of both cervix and uterus
CPT/HCPCS: 71010; 80048; 80053; 83735; 83880; 84484; 85025; 85610; 85730; 87040; 93005; 94640; 96374; 99285; A9270-GY; J1956; J2405; J2550; J2920; J2930